=== PATIENT | female | born 1980 | race Caucasian/White ===

== ENCOUNTER → 2017-03-15 15:00 | Outpatient (CLI) | payer MEDICAID ==
[2016-04-06 19:46] VITALS: BMI 24.4
[~2017-03-15 15:00] MED LIST: ABILIFY10 MG PO; ABILIFY2 MG PO; ATARAX 25 MG TA25 MG PO; ELMIRON100 MG PO; KLONOPIN0.5 MG PO; PROZAC40 MG PO; ZOLOFT100 MG PO
== END | disposition home or self-care (01) ==
LOC: D.MRI 15:00
DX: M54.16 Radiculopathy, lumbar region (principal)

== ENCOUNTER 2017-11-02 06:12 | Inpatient (IN) | payer MEDICAID ==
[2017-11-01 10:37] LABS: HEMATOCRIT 45.1 % (36.0-48.0); HEMOGLOBIN 14.9 g/dL (12-16); MCH 31.2 pg (26.0-34.0); MCV 94.4 fL (80.0-100.0); MEAN PLATELET VOLUME 10.2 fL (7.4-10.4); RBC 4.78 10x6/uL (4.00-5.40); RDW 13.9 % (11.5-14.5); WBC 9.6 10x3/uL (4.8-10.8)
[2017-11-02] VITALS (13 sets, daily range): BP systolic 109–132; BP diastolic 68–78; Ht 180.3 cm; Wt 83.6 kg
[~2017-11-02] VITALS: Ht 180.3 cm; Wt 83.6 kg
[~2017-11-02 06:12] MED LIST changes: +CYMBALTA60 MG PO; +INDERAL10 MG PO; +LAMICTAL200 MG PO; +NUCYNTA ER150 MG PO; +TRAZODONE HCL50 MG PO
[2017-11-03] VITALS (21 sets, daily range): BP systolic 103–138; BP diastolic 53–80
[2017-11-03 08:04] LABS: BASOPHILS 0 % (0-2); EOSINOPHILS 0 % (0-7); HEMATOCRIT 40.9 % (36.0-48.0); HEMOGLOBIN 13.3 g/dL (12-16); IMMATURE GRANULOCYTES 0.3 % (0-5); LYMPHOCYTES 5.9 % (15-50); MCH 30.6 pg (26.0-34.0); MCHC 32.5 g/dL (31.0-37.0); MONOCYTES 7.1 % (2-11); NEUTROPHILS 86.7 % (40-80); PLATELET COUNT 293 10x3/uL (130-400); RBC 4.35 10x6/uL (4.00-5.40); WBC 22.6 10x3/uL (4.8-10.8)
[2017-11-03 08:13] LABS: CALC OSMOLALITY 277 mosm/kg (275-300); CALCIUM 9.1 mg/dL (8.5-10.1); CARBON DIOXIDE 27.8 mmol/L (21.0-32.0); CHLORIDE - SERUM 108 mmol/L (98-107); CREATININE - SERUM 0.7 mg/dL (0.6-1.3); GLUCOSE 107 mg/dL (74-106); POTASSIUM - SERUM 4.5 mmol/L (3.5-5.1); SODIUM 141 mmol/L (136-145); UREA NITROGEN 5 mg/dL (7-18); eGFR NON AFRICAN AMERICAN > 90 mL/min (90-120)
[2017-11-04] VITALS (8 sets, daily range): BP systolic 100–129; BP diastolic 52–84
--- NOTE | 2017-11-11 13:27 | OP ---
PATIENT NAME: MANUEL HORNE MEDICAL RECORD: [id number] :78 LOCATION:DBATOOL D.CV08 ADMISSION DATE:11/02/17 SURGEON: NEELA CENTENO MD DATE OF OPERATION: 11/02/2017 PROCEDURE: Exposure for anterior lumbar interbody fusion. This was a cosurgeon procedure. Due to complexity of the procedure, 2 attending surgeons were necessary during the operative procedure. Dr. Damien Villanueva was the neurosurgeon. The access surgeon, who is a general surgeon, is Dr. Neela Centeno. For the description of the construct please see Dr. Villanueva's note. I was present through the entire operation from the initial skin incision to the final closure. I never left the operating room and was present and assisted Dr. Villanueva during insertion of the construct. DESCRIPTION OF THE PROCEDURE: The patient was conveyed to the operating room electively on 11/02/2017. General anesthesia was induced by the anesthesia staff. The abdomen was sterilely prepped and draped. Utilizing the C-arm and visualizing the lower lumbar spine laterally, we identified the L5-S1 interspace and utilizing a metallic marker, we identified the angulation of the L5-S1 interspace and where this under fluoroscopy met the anterior abdominal wall skin. This aided me in guiding my incision for approach to the L5-S1 disc space. This was marked on the patient's abdomen. An incision was accomplished in the midline and this was a transverse incision. Sharp dissection was carried down through skin and subcutaneous tissue as well as Tobi's fascia. The linea alba was incised in the midline. I then elevated the left rectus abdominis muscle. Creating an extraperitoneal plane, I continued around on the left side. The round ligament was identified and divided. The transversalis fascia was identified and divided. I elevated the epigastric vein. The visceral sac was then pulled to the left. I identified the ureter. The iliac artery and vein were identified. The ureter was protected and undamaged through the entire operation. I identified the L5-S1 disc space. The MARS retractor was then fixated above the incision and the retractor blades were placed. We elevated the bifurcation of the inferior vena cava as well as both common iliac veins. This exposed the L5-S1 disc space. The median sacral vein was cauterized with the bipolar cautery. Dr. Villanueva then inserted a needle into the L5-S1 disc space and this disc space was confirmed radiographically. I was present and retracted venous structures away from Dr. Villanueva's operative field while he performed the discectomy and placement of the spinal construct. I was with him during this entire procedure and assisted him with retraction of tissue away from his operative site. Once he was finished with insertion of the construct and was satisfied with how it appeared radiographically, I went about closing the abdomen. I released the retractors. There was no bleeding. I identified the left ureter and it was undamaged during the procedure. I noted no evidence of a DVT in the left iliac venous system. There appeared to have been no intestinal injury. No injury to the bladder. The linea alba was closed in the midline with a running looped 0 PDS from the cephalad and caudad directions. Tobi's fascia was approximated with interrupted 3-0 Vicryls. The subdermis was approximated with interrupted 3-0 Vicryls. The skin was approximated with a running intracuticular 3-0 Vicryl. Benzoin and Steri-Strips were applied. OPERATIVE REPORT [id number] MANUEL HORNE The patient was then extubated and conveyed to post-anesthesia care unit where she was in stable condition. TRANSINT:[id number] Voice Confirmation ID: [id number] DOCUMENT ID: [id number] NEELA CENTENO MD at 1327 CC: [id number] DICTATION DATE: 11/03/17 1848 BEVERAGE INSPECTION MACHINE TENDER: 11/04/17 0044 DIS IN 11/04/17 [id number] [place] [address]
--- NOTE | 2017-11-22 13:23 | OP ---
PATIENT NAME: MANUEL HORNE MEDICAL RECORD: [id number] :78 LOCATION:TEE Aponte08 ADMISSION DATE:11/02/17 SURGEON: ROSELYN HICKEY MD DATE OF OPERATION: 11/02/2017 PREOPERATIVE DIAGNOSES: Segmental instability and severe degenerative disc disease at L5-S1. POSTOPERATIVE DIAGNOSES: Segmental instability and severe degenerative disc disease at L5-S1. PROCEDURE: A 360 degree fusion at L5-S1 with instrumentation L5-S1, interbody PEEK cage L5-S1, anterior lumbar interbody fusion with [employer] Magnify hardware, bone stem cell Biocell allograft, foraminotomies posteriorly at L5-S1. COSURGEON: Roselyn Hickey MD COSURGEON: Estuardo Hernandez MD DESCRIPTION AND TECHNIQUE: After exposure by Dr. Hernandez of the L5-S1 interspace, I incised the L5-S1 disc space with #11 blade. The disc material was removed with pituitary rongeurs and curettes. The bony endplates were prepared with curettes. Osteophytes drilled away posteriorly and were removed posteriorly with Cloward rongeurs to effectively achieve foraminotomies posteriorly. A 26 x 34 mm cage was advanced into the interspace under distraction. It was expanded to fit approximately 14 mm. There is a 15 degree lordotic cage prior to this. It was filled with Bio stem cell bone graft. A superior screw with 35 mm length was advanced through the anterior portion of the cage. The inferior screws 30 mm in length were advanced through the bottom portion of the cage and anterior cervical plate and anterior lumbar plate. The locking cams were tightened down over the screw heads. Good position of the hardware was confirmed with the fluoroscopic x-ray. Meticulous hemostasis was maintained throughout the wound. Dr. Hernandez closed the remainder of the wound. The patient was awakened and taken to recovery. She tolerated the procedure well. Estimated blood loss was 75 cc. TRANSINT:[id number] Voice Confirmation ID: [id number] DOCUMENT ID: [id number] ROSELYN HICKEY MD at 1323 CC: [id number] DICTATION DATE: 11/05/17 1433 SCIENTIFIC MANAGER: 11/05/172126 DIS IN 11/04/17 [place] [address]
--- NOTE | 2017-12-24 15:43 | DS ---
PATIENT:MANUEL HORNE :78 MEDICAL RECORD: [id number] DISCHARGE SUMMARY ADMISSION DATE: 11/02/17 DISCHARGE DATE: 11/04/17 ADMISSION DIAGNOSIS: Segmental instability at L5-S1 with L5 radiculopathy. DISCHARGE DIAGNOSIS: Status post anterior lumbar interbody fusion. HOSPITAL COURSE: The patient was admitted following surgery, which she tolerated well, was observed in ICU overnight and discharged home the following day with return to clinic in [address] Hickey with AP and lateral lumbar spine films. The diet was regular. MEDICATIONS: [place] 10/325 one to two every 3 hours p.r.n. pain. TRANSINT:[id number] Voice Confirmation ID: [id number] DOCUMENT ID: [id number] ROSELYN HICKEY MD at 1543 CC: [id number] DICTATION DATE: 12/22/17 1216 BOTTLE INSPECTOR: 12/23/17 0245 DIS IN 11/04/17 [id number] [place] [address]
== END 2017-11-04 10:30 | disposition home or self-care (01) | DRG 460 ==
LOC: D.SDCHOLD 06:12 → D.CVICU 06:12 → D.SDCHOLD 09:30 → D.CVICU 13:59
PROVIDERS: Anesthesiology; ADMIT Neurological Surgery
PROC: 0SB40ZZ Excision of Lumbosacral Disc, Open Approach (ICD-10-PCS; 2017-11-02)
PROC: 0SG30A0 Fusion of Lumbosacral Joint with Interbody Fusion Device, Anterior Approach, Anterior Column, Open Approach (ICD-10-PCS; principal; 2017-11-02 09:30)
DX: M51.37 Other intervertebral disc degeneration, lumbosacral region (principal); M53.2X7 Spinal instabilities, lumbosacral region; I10 Essential (primary) hypertension

== ENCOUNTER → 2017-12-13 10:31 | Outpatient (CLI) | payer MEDICAID ==
[2017-11-02 15:03] VITALS: BMI 25.7
== END | disposition home or self-care (01) ==
LOC: D.MRI 10:31
DX: M54.16 Radiculopathy, lumbar region (principal); Z98.890 Other specified postprocedural states

== ENCOUNTER 2018-01-19 20:08 | Emergency (ER) | payer MEDICAID ==
[2017-11-02 15:03] VITALS: BMI 25.7
[2018-01-19 20:37] LABS: BASOPHILS 0.1 % (0-2); EOSINOPHILS 0.5 % (0-7); HEMATOCRIT 45.6 % (36.0-48.0); HEMOGLOBIN 15.1 g/dL (12-16); IMMATURE GRANULOCYTES 0.2 % (0-5); LYMPHOCYTES 22.6 % (15-50); MCH 31.2 pg (26.0-34.0); MCHC 33.1 g/dL (31.0-37.0); MCV 94.2 fL (80.0-100.0); MEAN PLATELET VOLUME 10.5 fL (7.4-10.4); MONOCYTES 8.8 % (2-11); NEUTROPHILS 67.8 % (40-80); PLATELET COUNT 343 10x3/uL (130-400); RBC 4.84 10x6/uL (4.00-5.40); RDW 13.7 % (11.5-14.5); WBC 13.3 10x3/uL (4.8-10.8)
[2018-01-19 20:59] LABS: HCG SERUM NEGATIVE (NEGATIVE)
[2018-01-19 21:11] LABS: ALBUMIN 3.6 g/dL (3.4-5.0); ALKALINE PHOSPHATASE 48 U/L (46-116); ALT (SGPT) 30 U/L (10-68); BILIRUBIN - TOTAL 0.25 mg/dL (0.2-1.3); CALC OSMOLALITY 276 mosm/kg (275-300); CALCIUM 8.7 mg/dL (8.5-10.1); CARBON DIOXIDE 29.7 mmol/L (21.0-32.0); CHLORIDE - SERUM 104 mmol/L (98-107); CREATININE - SERUM 0.8 mg/dL (0.6-1.3); GLUCOSE 100 mg/dL (74-106); POTASSIUM - SERUM 4.4 mmol/L (3.5-5.1); PROTEIN - SERUM 6.8 g/dL (6.4-8.2); SODIUM 139 mmol/L (136-145); UREA NITROGEN 9 mg/dL (7-18); eGFR NON AFRICAN AMERICAN 85 mL/min (90-120)
[2018-01-19 21:14] LABS: APPEARANCE CLEAR (CLEAR); BILIRUBIN NEGATIVE (NEGATIVE); COLOR YELLOW (YELLOW); GLUCOSE NEGATIVE (NEGATIVE); KETONE NEGATIVE (NEGATIVE); NITRITE NEGATIVE (NEGATIVE); PROTEIN NEGATIVE (NEGATIVE); UROBILINOGEN NORMAL (NORMAL)
[2018-01-19 21:15] LABS: EPITHELIAL CELLS 0-5 /hpf (0-5); RED CELLS - URINE 0-5 /hpf (0-5); WHITE CELLS - URINE 0-5 /hpf (0-5)
[2018-01-19 21:16] LABS: BACTERIA MODERATE /hpf (NONE SEEN)
[2018-01-24] MEDS ORDERED: PERCOCET 10/3251 TA1 PO (10:45)
== END 2018-01-19 22:16 | disposition home or self-care (01) ==
LOC: D.ER 20:08
PROVIDERS: Emergency Medicine; Nurse Practitioner Family
DX: N30.10 Interstitial cystitis (chronic) without hematuria (principal)

== ENCOUNTER 2018-01-24 12:01 | Outpatient (CLI) | payer MEDICAID ==
[2017-11-02 15:03] VITALS: BMI 25.7
[2018-01-24 11:02] LABS: HEMOGLOBIN 15.1 g/dL (12-16); MCH 31.1 pg (26.0-34.0); MCHC 32.8 g/dL (31.0-37.0); MCV 94.7 fL (80.0-100.0); RBC 4.86 10x6/uL (4.00-5.40); RDW 13.6 % (11.5-14.5); WBC 8.5 10x3/uL (4.8-10.8)
[~2018-01-24 12:01] MED LIST changes: +PERCOCET 10/3251 TA1 PO
== END 2018-01-24 23:59 | disposition home or self-care (01) ==
LOC: D.OPS 12:01 → EDSTATUS 01-25 08:30 → D.PAN 01-25 08:30 → D.OPS 01-25 08:30
PROVIDERS: Anesthesiology
DX: M51.26 Other intervertebral disc displacement, lumbar region (principal); Z01.810 Encounter for preprocedural cardiovascular examination; Z01.811 Encounter for preprocedural respiratory examination; Z01.812 Encounter for preprocedural laboratory examination; Z53.9 Procedure and treatment not carried out, unspecified reason

== ENCOUNTER 2018-02-08 05:08 | Inpatient (IN) | payer MEDICAID ==
[~2018-02-08] VITALS: Ht 180.3 cm; Wt 78.6 kg
--- NOTE | ~2018-02-08 | OP ---
PATIENT NAME: MANUEL HORNE MEDICAL RECORD: [id number] :78 LOCATION:D.MS Aponte2204 ADMISSION DATE:02/08/18 SURGEON: ROSELYN HICKEY MD DATE OF OPERATION: 02/09/2018 PREOPERATIVE DIAGNOSES: Segmental instability and recurrent disk herniation third time at L3-L4. POSTOPERATIVE DIAGNOSIS: Segmental instability and recurrent disk herniation third time at L3-L4. PROCEDURE: Lumbar laminectomy and facetectomy at L3-L4, lumbar transforaminal interbody fusion at L3-L4 with [employer] expandable PEEK titanium cage, ViaCell stem cell allograft, pedicle screw fixation at L3-L4 with [employer] percutaneous pedicle screws. DESCRIPTION OF TECHNIQUE: After induction of general endotracheal anesthesia, the patient was rolled prone on chest and hip rolls. The lumbar spine was prepped and draped in usual sterile fashion. Fluoroscopic x-ray and spinal needle localized the L3-L4 interspace. A stab incision was created with #11 blade and series of dilators was used to advance an expandable retractor at L3-L4 interspace. A Midas Apolinar drill and microscope were used to perform a laminectomy and facetectomy at L3-L4. Hypertrophied ligamentum flavum was removed with Cloward rongeurs. L3 and L4 nerve roots were identified. The disk space was incised with #11 blade and a series of disk space deanna and curettes and pituitary rongeurs were used to prepare the end plates and remove disk material. An expandable [employer] PEEK titanium interbody cage was placed in the disk space under distraction. Good decompression of the dura was accomplished. The retractor was removed. Four stab incisions were created over the pedicles at L3 and L4. A Jamshidi needle was used to cannulate the pedicles at all 4 sides. The guidewire was inserted through the Jamshidi needle. Then, 45-mm pedicle screws about 6.5 mm diameter were advanced over the K-wires at all 4 pedicles. Top loading tyler was placed into the screw heads. Locking caps were tightened down with a torque wrench. Good position of hardware was confirmed on fluoroscopic x-ray. Each incision was closed with 2-0 Vicryl suture on the fascia and 3-0 Vicryl suture on the subdermal layers. The skin was closed with marie. A sterile dressing was applied on all 4 wounds. The patient was awakened in good condition and taken to recovery. All counts were reported as correct. Estimated blood loss was 75 cc. TRANSINT:[id number] Voice Confirmation ID: [id number] DOCUMENT ID: [id number] ROSELYN HICKEY MD at 1709 CC: [id number] DICTATION DATE: 02/09/18 0757 SURGICAL RESIDENT: 02/09/18 1101 [place] [address]
[2018-02-08 06:19] VITALS: BP 117/78; BMI 24.1
[2018-02-08 06:22] VITALS: BP 117/78; BMI 24.1
[2018-02-08 06:26] LABS: HEMATOCRIT 42.5 % (36.0-48.0); MCH 30.9 pg (26.0-34.0); MCHC 32.9 g/dL (31.0-37.0); MCV 93.8 fL (80.0-100.0); MEAN PLATELET VOLUME 9.9 fL (7.4-10.4); RBC 4.53 10x6/uL (4.00-5.40); RDW 13.4 % (11.5-14.5); WBC 7.6 10x3/uL (4.8-10.8)
[2018-02-08 14:30] VITALS: BP 134/72
[2018-02-08 15:27] VITALS: BP 130/61; Ht 180.3 cm; Wt 78.6 kg
[2018-02-08 20:00] VITALS: BP 117/71
[2018-02-09 04:00] VITALS: BP 111/67
[2018-02-09 08:24] VITALS: BP 101/61
[2018-02-09 12:44] VITALS: BP 101/60
[2018-02-09 16:05] VITALS: BP 103/53
[2018-02-09 20:23] VITALS: BP 114/52
[2018-02-10 00:19] VITALS: BP 106/53
[2018-02-10 03:38] VITALS: BP 115/53
[2018-02-10 08:11] VITALS: BP 108/63
[2018-02-10 12:46] VITALS: BP 120/66
[2018-02-10 15:54] VITALS: BP 117/63
[2018-02-10 19:49] VITALS: BP 91/56
[2018-02-11 00:39] VITALS: BP 111/74
[2018-02-11 04:31] VITALS: BP 138/77
[2018-02-11 08:40] VITALS: BP 119/78
[2018-02-11 13:01] VITALS: BP 142/79
[2018-02-11] MEDS ORDERED: NEURONTIN600 MG PO (17:41)
[2018-02-11] MEDS ORDERED: PERCOCET 10/3251 TA1 PO (17:42)
[2018-02-11 18:02] VITALS: BP 139/73
== END 2018-02-11 18:15 | disposition home or self-care (01) | DRG 455 ==
LOC: D.MS 05:08 → D.OPS 05:08 → D.PAN 07:30 → D.MS 13:45 → D.OPS 14:26 → D.MS 02-11 18:15
PROVIDERS: Anesthesiology
PROC: 0SG00AJ Fusion of Lumbar Vertebral Joint with Interbody Fusion Device, Posterior Approach, Anterior Column, Open Approach (ICD-10-PCS; principal; 2018-02-09)
PROC: 0SG00K1 Fusion of Lumbar Vertebral Joint with Nonautologous Tissue Substitute, Posterior Approach, Posterior Column, Open Approach (ICD-10-PCS; 2018-02-09)
PROC: 0SB20ZZ Excision of Lumbar Vertebral Disc, Open Approach (ICD-10-PCS; 2018-02-09)
DX: M51.26 Other intervertebral disc displacement, lumbar region (principal); M53.2X6 Spinal instabilities, lumbar region

== ENCOUNTER → 2018-05-03 12:36 | Outpatient (CLI) | payer MEDICAID ==
[2018-02-08 15:27] VITALS: BMI 24.1
[~2018-05-03 12:36] MED LIST changes: +NEURONTIN600 MG PO
== END | disposition home or self-care (01) ==
LOC: D.MRI 12:36
DX: M54.16 Radiculopathy, lumbar region (principal)

== ENCOUNTER 2018-08-28 22:55 | Emergency (ER) | payer MEDICAID ==
[~2018-08-28] VITALS: Ht 180.3 cm; Wt 72.7 kg
[2018-08-28 23:11] VITALS: Ht 180.3 cm; Wt 72.7 kg
[2018-08-29] MEDS ORDERED: ZOFRAN8 MG PO (01:30)
[2018-08-29] MEDS ORDERED: NORCO 7.5/325 T1 TA1 PO (01:30)
[2018-08-29] MEDS ORDERED: VIBRAMYCIN 100100 MG PO (01:30)
[2018-08-29 01:57] VITALS: BP 128/69
[2018-08-30] MEDS ORDERED: ELMIRON100 MG PO (00:15)
== END 2018-08-29 01:57 | disposition home or self-care (01) ==
LOC: D.ER 22:55
DX: L02.415 Cutaneous abscess of right lower limb (principal)

== ENCOUNTER 2018-08-29 18:40 | Inpatient (IN) | payer MEDICAID ==
[~2018-08-29] VITALS: Ht 180.3 cm; Wt 74.4 kg
--- NOTE | ~2018-08-29 | MORECARE ---
CASE MANAGEMENT DISCHARGE SUMMARY PATIENT: MANUEL HORNE UNIT: [id number] ADM DATE: 08/29/18 AGE: 38 : 78 SEX: F ROOM/BED: D.2207 AUTHOR: CHOCO,DOC PHYSICIAN: REFERRING PHYSICIAN: COLT HARMON MD DATE OF SERVICE: 08/31/18 Discharge Plan Patient Name: MANUEL HORNE Facility: [facility]:[place] : 1980 Planned Disposition: Home with Infusion Therapy Services Anticipated Discharge Date: Discharge Date: Expected LOS: Initial Reviewer: [email or web address] Initial Review Date: 08/29/2018 Generated: 08/31/18 3:46 pm Comments DCP- Discharge Planning Updated by [email or web address]: Ting Laird on 08/31/18 1:[address] Patient Name: MANUEL HORNE Admission Status: ER Accout number: [id number] Admission Date: 08-29-2018 : 1980 Admission Diagnosis:CUTANEOUS ABSCESS OF RIGHT LOWER LIMB Attending: COLT HARMON Current LOS: 2 Anticipated DC Date: Planned Disposition: Home with Infusion Therapy Services Primary Insurance: MEDICAID [place] Discharge Planning Comments: CM met with patient to assess discharge patient needs. Patient will be discharging home with IV abx and home health. JESSICA with [facility]. Patient is independent with her care at home and stated that she is safe to return. Her boyfriend will be the one to drive her home. She will have 8 days of iv abx and I have sent a referral to [facility]. I have spoken with Jenn at [employer]. CM will continue to follow and assist with DC planning needs Can Conveyor Feeder: Ting Laird DCPIA - Discharge Planning Initial Assessment Updated by [email or web address]: Ting Laird on 08/31/18 2:39 pm * Is the patient Alert and Oriented? Yes * How many steps to enter\exit or inside your home? * PCP [facility] * Pharmacy [facility] [place] * Preadmission Environment Home with Family * ADLs Independent * Equipment None * List name and contact numbers for known caregivers / representatives who currently or will assist patient after discharge: GABRIELLE ) [phone] * Verbal permission to speak to the caregivers and representatives has been obtained from the patient. N/A * Community resources currently utilized None * Additional services required to return to the preadmission environment? Yes * Can the patient safely return to the preadmission environment? Yes * Has this patient been hospitalized within the prior 30 days at any hospital? No Last DP export: 08/31/18 1:39 Patient Name: MANUEL HORNE Page [id number] at 1446 All edits/amendments must be made on the electronic document DICTATION DATE: 08/31/181445 SILVICULTURE TEACHER: NATALI 08/31/181445 RPT#: [id number] DC DATE: STATUS: ADM IN [facility] [address] [place] [address] END OF REPORT
--- NOTE | ~2018-08-29 | MORECARE ---
CASE MANAGEMENT DISCHARGE SUMMARY PATIENT: MANUEL HORNE UNIT: [id number] ADM DATE: 08/29/18 AGE: 38 : 78 SEX: F ROOM/BED: D.2207 AUTHOR: CHOCO,DOC PHYSICIAN: REFERRING PHYSICIAN: COLT HARMON MD DATE OF SERVICE: 08/31/18 Discharge Plan Patient Name: MANUEL HORNE Facility: [facility]:[place] : 1980 Planned Disposition: Home with Infusion Therapy Services Anticipated Discharge Date: Discharge Date: Expected LOS: Initial Reviewer: [email or web address] Initial Review Date: 08/29/2018 Generated: 08/31/18 4:19 pm Comments DCP- Discharge Planning Updated by [email or web address]: Ting Laird on 08/31/18 1:[address] Patient Name: MANUEL HORNE Admission Status: ER Accout number: [id number] Admission Date: 08-29-2018 : 1980 Admission Diagnosis:CUTANEOUS ABSCESS OF RIGHT LOWER LIMB Attending: COLT HARMON Current LOS: 2 Anticipated DC Date: Planned Disposition: Home with Infusion Therapy Services Primary Insurance: MEDICAID [place] Discharge Planning Comments: CM met with patient to assess discharge patient needs. Patient will be discharging home with IV abx and home health. JESSICA with [employer]. Patient is independent with her care at home and stated that she is safe to return. Her boyfriend will be the one to drive her home. She will have 8 days of iv abx and I have sent a referral to [facility]. I have spoken with Jenn at [employer]. CM will continue to follow and assist with DC planning needs Mill Operator Helper: Ting Laird DCPIA - Discharge Planning Initial Assessment Updated by [email or web address]: Ting Laird on 08/31/18 2:39 pm * Is the patient Alert and Oriented? Yes * How many steps to enter\exit or inside your home? * PCP [facility] * Pharmacy [facility] [place] * Preadmission Environment Home with Family * ADLs Independent * Equipment None * List name and contact numbers for known caregivers / representatives who currently or will assist patient after discharge: GABRIELLE ) [phone] * Verbal permission to speak to the caregivers and representatives has been obtained from the patient. N/A * Community resources currently utilized None * Additional services required to return to the preadmission environment? Yes * Can the patient safely return to the preadmission environment? Yes * Has this patient been hospitalized within the prior 30 days at any hospital? No External Providers [facility] Provider[facility] Next Contact Date: Service Request Date: Service Type: Resolution: Reviewer: Comments: External Provider: [facility] Next Contact Date: Service Request Date: Service Type: Resolution: Reviewer: Comments: Last DP export: 08/31/18 1:46 Patient Name: MANUEL HORNE Page [phone] at 1517 All edits/amendments must be made on the electronic document DICTATION DATE: 08/31/181518 RUBBER COMPOUNDER MIXER: NATALI 08/31/181518 RPT#: [id number] DC DATE: STATUS: ADM IN [facility] [address] [place] [address] END OF REPORT
--- NOTE | ~2018-08-29 | MORECARE ---
CASE MANAGEMENT DISCHARGE SUMMARY PATIENT: MANUEL HORNE UNIT: [id number] ADM DATE: 08/29/18 AGE: 38 : [birth year] SEX: F ROOM/BED: D.2207 AUTHOR: TISHA WILHELM PHYSICIAN: REFERRING PHYSICIAN: COLT HARMON MD DATE OF SERVICE: 08/31/18 Discharge Plan Patient Name: MANUEL HORNE Facility: [facility]:[place] : 1980 Planned Disposition: Home with Infusion Therapy Services Anticipated Discharge Date: Discharge Date: Expected LOS: Initial Reviewer: [email or web address] Initial Review Date: 08/29/2018 Generated: 08/31/18 3:39 pm Patient Name: MANUEL HORNE Page [phone] at 1439 All edits/amendments must be made on the electronic document DICTATION DATE: 08/31/181437 NEWS INTERN: NATALI 08/31/181437 RPT#: [id number] DC DATE: STATUS: ADM IN [facility] [address] [place] [address] END OF REPORT
--- NOTE | ~2018-08-29 | MORECARE ---
CASE MANAGEMENT DISCHARGE SUMMARY PATIENT: MANUEL HORNE UNIT: [id number] ADM DATE: 08/29/18 AGE: 38 : 78 SEX: F ROOM/BED: D.2207 AUTHOR: CHOCO,DOC PHYSICIAN: REFERRING PHYSICIAN: COLT HARMON MD DATE OF SERVICE: 09/05/18 Discharge Plan Patient Name: MANUEL HORNE Facility: [facility]:[place] : 1980 Planned Disposition: Home with Infusion Therapy Services Anticipated Discharge Date: Discharge Date: 09/01/2018 Expected LOS: 0 Initial Reviewer: [email or web address] Initial Review Date: 08/29/2018 Generated: 09/05/18 9:09 am Comments DCP- Discharge Planning Updated by [email or web address]: Ting Laird on 09/01/18 11:[address] PATIENT DISCHARGING HOME TODAY, RENZO WITH [facility] HERE AT BEDSIDE TO DO TEACHING. [facility] [facility] WILL ADMIT THE PATIENT AND FOLLOW THE PATIENT. PATIENT'S BOYFRIEND WILL BE THE ONE TO TAKE HER HOME AND HELP HER WITH TH EIBV ABX. CM WILL CONTINUE TO FOLLOW AND ASSIST WITH DC PLANNING NEEDED DCP- Discharge Planning Updated by [email or web address]: Ting Laird on 08/31/18 1:[address] Patient Name: MANUEL HORNE Admission Status: ER Accout number: [id number] Admission Date: 08-29-2018 : 1980 Admission Diagnosis:CUTANEOUS ABSCESS OF RIGHT LOWER LIMB Attending: COLT HARMON Current LOS: 2 Anticipated DC Date: Planned Disposition: Home with Infusion Therapy Services Primary Insurance: MEDICAID [place] Discharge Planning Comments: CM met with patient to assess discharge patient needs. Patient will be discharging home with IV abx and home health. JESSICA with [employer]. Patient is independent with her care at home and stated that she is safe to return. Her boyfriend will be the one to drive her home. She will have 8 days of iv abx and I have sent a referral to [facility]. I have spoken with Jenn at [facility]. CM will continue to follow and assist with DC planning needs Merry Go Round Attendant: Ting Laird DCPIA - Discharge Planning Initial Assessment Updated by [email or web address]: Ting Laird on 08/31/18 2:39 pm * Is the patient Alert and Oriented? Yes * How many steps to enter\exit or inside your home? * PCP [facility] * Pharmacy [facility] [place] * Preadmission Environment Home with Family * ADLs Independent * Equipment None * List name and contact numbers for known caregivers / representatives who currently or will assist patient after discharge: GABRIELLE ) [phone] * Verbal permission to speak to the caregivers and representatives has been obtained from the patient. N/A * Community resources currently utilized None * Additional services required to return to the preadmission environment? Yes * Can the patient safely return to the preadmission environment? Yes * Has this patient been hospitalized within the prior 30 days at any hospital? No Last DP export: 09/01/18 11:08 Patient Name: MANUEL HORNE Page 70564 at 0809 All edits/amendments must be made on the electronic document DICTATION DATE: 09/05/18808 ACTIVITIES LEADER: NATALI 09/05/18808 RPT#: [id number] DC DATE:09/01/18 STATUS: DIS IN [facility] [address] [place] [address] END OF REPORT
--- NOTE | ~2018-08-29 | MORECARE ---
CASE MANAGEMENT DISCHARGE SUMMARY PATIENT: MANUEL HORNE UNIT: [id number] ADM DATE: 08/29/18 AGE: 38 : 78 SEX: F ROOM/BED: D.2207 AUTHOR: CHOCO,DOC PHYSICIAN: REFERRING PHYSICIAN: COLT HARMON MD DATE OF SERVICE: 09/01/18 Discharge Plan Patient Name: MANUEL HORNE Facility: [facility]:[place] : 1980 Planned Disposition: Home with Infusion Therapy Services Anticipated Discharge Date: Discharge Date: Expected LOS: Initial Reviewer: [email or web address] Initial Review Date: 08/29/2018 Generated: 09/01/18 1:08 pm Comments DCP- Discharge Planning Updated by [email or web address]: Ting Laird on 09/01/18 11:[address] PATIENT DISCHARGING HOME TODAY, RENZO WITH [facility] HERE AT BEDSIDE TO DO TEACHING. [employer] [facility] WILL ADMIT THE PATIENT AND FOLLOW THE PATIENT. PATIENT'S BOYFRIEND WILL BE THE ONE TO TAKE HER HOME AND HELP HER WITH TH EIBV ABX. CM WILL CONTINUE TO FOLLOW AND ASSIST WITH DC PLANNING NEEDED DCP- Discharge Planning Updated by [email or web address]: Ting Laird on 08/31/18 1:[address] Patient Name: MANUEL HORNE Admission Status: ER Accout number: [id number] Admission Date: 08-29-2018 : 1980 Admission Diagnosis:CUTANEOUS ABSCESS OF RIGHT LOWER LIMB Attending: COLT HARMON Current LOS: 2 Anticipated DC Date: Planned Disposition: Home with Infusion Therapy Services Primary Insurance: MEDICAID [place] Discharge Planning Comments: CM met with patient to assess discharge patient needs. Patient will be discharging home with IV abx and home health. JESSICA with [facility]. Patient is independent with her care at home and stated that she is safe to return. Her boyfriend will be the one to drive her home. She will have 8 days of iv abx and I have sent a referral to [facility]. I have spoken with Jenn at [facility]. CM will continue to follow and assist with DC planning needs Commercial Plumber: Ting Laird DCPIA - Discharge Planning Initial Assessment Updated by [email or web address]: Ting Laird on 08/31/18 2:39 pm * Is the patient Alert and Oriented? Yes * How many steps to enter\exit or inside your home? * PCP [facility] * Pharmacy [facility] [place] * Preadmission Environment Home with Family * ADLs Independent * Equipment None * List name and contact numbers for known caregivers / representatives who currently or will assist patient after discharge: GABRIELLE ) [phone] * Verbal permission to speak to the caregivers and representatives has been obtained from the patient. N/A * Community resources currently utilized None * Additional services required to return to the preadmission environment? Yes * Can the patient safely return to the preadmission environment? Yes * Has this patient been hospitalized within the prior 30 days at any hospital? No Last DP export: 08/31/18 2:19 Patient Name: MANUEL HORNE Page [phone] at 1208 All edits/amendments must be made on the electronic document DICTATION DATE: 09/01/181206 MANUFACTURING RECRUITER: NATALI 09/01/181206 RPT#: [id number] DC DATE: STATUS: ADM IN [facility] [address] [place] [address] END OF REPORT
[~2018-08-29 18:40] MED LIST changes: +NORCO 7.5/325 T1 TA1 PO; +VIBRAMYCIN 100100 MG PO; +ZOFRAN8 MG PO
[2018-08-29 19:13] LABS: BASOPHILS 0 % (0-2); EOSINOPHILS 0.2 % (0-7); HEMATOCRIT 43.1 % (36.0-48.0); HEMOGLOBIN 14.5 g/dL (12-16); IMMATURE GRANULOCYTES 0.3 % (0-5); LYMPHOCYTES 10.8 % (15-50); MCH 31.7 pg (26.0-34.0); MCHC 33.6 g/dL (31.0-37.0); MCV 94.1 fL (80.0-100.0); MEAN PLATELET VOLUME 9.9 fL (7.4-10.4); MONOCYTES 7.5 % (2-11); NEUTROPHILS 81.2 % (40-80); PLATELET COUNT 313 10x3/uL (130-400); RBC 4.58 10x6/uL (4.00-5.40); RDW 13.3 % (11.5-14.5); WBC 18.3 10x3/uL (4.8-10.8)
[2018-08-29 19:35] LABS: ALBUMIN 3.9 g/dL (3.4-5.0); ALKALINE PHOSPHATASE 36 U/L (46-116); ALT (SGPT) 27 U/L (10-68); BILIRUBIN - TOTAL 0.89 mg/dL (0.2-1.3); CALC OSMOLALITY 276 mosm/kg (275-300); CALCIUM 9.4 mg/dL (8.5-10.1); CHLORIDE - SERUM 103 mmol/L (98-107); CREATININE - SERUM 0.6 mg/dL (0.6-1.3); GLUCOSE 90 mg/dL (74-106); PROTEIN - SERUM 7.4 g/dL (6.4-8.2); SODIUM 140 mmol/L (136-145); UREA NITROGEN 7 mg/dL (7-18); eGFR NON AFRICAN AMERICAN > 90 mL/min (90-120)
[2018-08-30] MEDS ORDERED: ELMIRON100 MG PO (00:15)
[2018-08-30 00:19] VITALS: BP 117/61; BMI 22.9
[2018-08-30 04:11] VITALS: BP 100/41
[2018-08-30 08:45] VITALS: BP 118/49
[2018-08-30 10:47] VITALS: Ht 180.3 cm; Wt 74.4 kg
[2018-08-30 12:45] VITALS: BP 96/54
[2018-08-30 16:53] VITALS: BP 99/58
[2018-08-30 20:16] VITALS: BP 126/58
[2018-08-31 03:31] VITALS: BP 100/66
[2018-08-31 07:11] LABS: BASOPHILS 0.1 % (0-2); EOSINOPHILS 0.7 % (0-7); HEMATOCRIT 38.9 % (36.0-48.0); HEMOGLOBIN 12.8 g/dL (12-16); IMMATURE GRANULOCYTES 0.2 % (0-5); LYMPHOCYTES 16.1 % (15-50); MCH 31.2 pg (26.0-34.0); MCHC 32.9 g/dL (31.0-37.0); MCV 94.9 fL (80.0-100.0); MONOCYTES 11.6 % (2-11); NEUTROPHILS 71.3 % (40-80); PLATELET COUNT 266 10x3/uL (130-400); RDW 13.6 % (11.5-14.5)
[2018-08-31 07:17] LABS: WBC 9.4 10x3/uL (4.8-10.8)
[2018-08-31 07:41] LABS: CALC OSMOLALITY 285 mosm/kg (275-300); CALCIUM 8.5 mg/dL (8.5-10.1); CARBON DIOXIDE 27.1 mmol/L (21.0-32.0); CHLORIDE - SERUM 108 mmol/L (98-107); CREATININE - SERUM 0.7 mg/dL (0.6-1.3); GLUCOSE 92 mg/dL (74-106); POTASSIUM - SERUM 3.9 mmol/L (3.5-5.1); SODIUM 144 mmol/L (136-145); VANCOMYCIN - TROUGH 5.7 ug/mL (10.0-20.0); eGFR NON AFRICAN AMERICAN > 90 mL/min (90-120)
[2018-08-31 07:42] LABS: UREA NITROGEN 9 mg/dL (7-18)
[2018-08-31 08:42] VITALS: BP 121/75
[2018-08-31 13:03] VITALS: BP 134/81
[2018-08-31 15:45] VITALS: BP 122/72
[2018-08-31 21:47] VITALS: BP 170/73
[2018-09-01 00:58] VITALS: BP 115/76
[2018-09-01 05:11] VITALS: BP 124/84
[2018-09-01 06:21] LABS: BASOPHILS 0.1 % (0-2); EOSINOPHILS 1.1 % (0-7); HEMOGLOBIN 12.6 g/dL (12-16); IMMATURE GRANULOCYTES 0.1 % (0-5); LYMPHOCYTES 24.3 % (15-50); MCH 30.9 pg (26.0-34.0); MCHC 32.3 g/dL (31.0-37.0); MCV 95.6 fL (80.0-100.0); MEAN PLATELET VOLUME 10.5 fL (7.4-10.4); NEUTROPHILS 65.4 % (40-80); PLATELET COUNT 285 10x3/uL (130-400); RBC 4.08 10x6/uL (4.00-5.40); RDW 13.6 % (11.5-14.5); WBC 7.5 10x3/uL (4.8-10.8)
[2018-09-01 09:10] VITALS: BP 145/76
[2018-09-01] MEDS ORDERED: VIBRAMYCIN 100100 MG PO (09:33)
[2018-09-01] MEDS ORDERED: FLORAJEN3 CAPS460 MG PO (09:34)
[2018-09-01] MEDS ORDERED: VANCOMYCIN 1 GM/1 G1 IV (09:36)
== END 2018-09-01 14:16 | disposition home health service (06) | DRG 603 ==
LOC: D.ER 18:40 → D.MS 19:30
PROVIDERS: Emergency Medicine; Family Medicine
PROC: 05HC33Z Insertion of Infusion Device into Left Basilic Vein, Percutaneous Approach (ICD-10-PCS; principal; 2018-08-31)
PROC: B54NZZA Ultrasonography of Left Upper Extremity Veins, Guidance (ICD-10-PCS; 2018-08-31)
DX: L02.415 Cutaneous abscess of right lower limb (principal); G89.29 Other chronic pain; N30.10 Interstitial cystitis (chronic) without hematuria; B95.62 Methicillin resistant Staphylococcus aureus infection as the cause of diseases classified elsewhere

== ENCOUNTER → 2018-10-17 15:58 | Outpatient (CLI) | payer MEDICAID ==
[2018-08-30 10:47] VITALS: BMI 22.8
[~2018-10-17 15:58] MED LIST changes: +FLORAJEN3 CAPS460 MG PO; +VANCOMYCIN 1 GM/1 G1 IV
== END | disposition home or self-care (01) ==
LOC: D.MRI 15:58
DX: M51.26 Other intervertebral disc displacement, lumbar region (principal)

== ENCOUNTER 2020-01-12 13:11 | Emergency (ER) | payer MEDICAID ==
[~2020-01-12] VITALS: Ht 180.3 cm; Wt 68.2 kg
[~2020-01-12 13:11] MED LIST changes: +MIGRAINE MEDS
[2020-01-12 13:19] VITALS: Ht 180.3 cm; Wt 68.2 kg
[2020-01-12] MEDS ORDERED: CLEOCIN HCL300 MG PO (17:38)
[2020-01-12] MEDS ORDERED: ZOVIRAX800 MG PO (17:38)
[2020-01-12 17:46] VITALS: BP 122/72
== END 2020-01-12 17:47 | disposition home or self-care (01) ==
LOC: D.ER 13:11
DX: R21 Rash and other nonspecific skin eruption (principal); M54.9 Dorsalgia, unspecified; R51 Headache